=== PATIENT | male | born 1930 | race Caucasian/White ===

== ENCOUNTER 2017-09-01 17:35 | Inpatient (IN) | payer MEDICARE, OTHER ==
[~2017-09-01] VITALS: Ht 188 cm; Wt 83.1 kg
[~2017-09-01 17:35] MED LIST: CARB15DR2 EACHEYE; CHOL10002 PO; DOXE75CA3 PO; LEVO75TA PO; SIMV20TA5 PO
[2017-09-01] MEDS ORDERED: LIDOcaine 2% 10ml TOPICAL JELLY (Urojet) MM ONE (18:05)
[2017-09-01 18:16] LABS: CLARITY,URINE Clear (Clear); COLOR,URINE Yellow (Yellow); GLUCOSE, URINE Negative (Neg); KETONES,URINE Negative (Neg); LEUKOCYTE ESTERASE ,URINE Negative (Neg); NITRITES, URINE Negative (Neg); OCCULT BLOOD,URINE Small (Neg); PROTEIN,URINE Trace mg/dl (Neg)
[2017-09-01 18:20] LABS: UA COLLECTION TYPE STRAIGHT CATH
[2017-09-01 18:22] LABS: WBC,URINE 0-4 /HPF (0-4)
[2017-09-01 18:23] LABS: BACTERIA,URINE FEW /HPF (Neg); SQUAMOUS EPITHELIAL CELL,UR FEW /LPF (FEW)
[2017-09-01 19:18] LABS: BASOPHILS % (AUTO) 0.2 % (0-1); EOSINOPHILS # (AUTO) 0.1 X10'3 (0-0.9); EOSINOPHILS % (AUTO) 0.5 % (0-6); HEMATOCRIT 41.1 % (42.0-52.0); HEMOGLOBIN 13.9 g/dl (14.0-17.9); LYMPHOCYTES # (AUTO) 0.7 X10'3 (1.1-4.8); LYMPHOCYTES % (AUTO) 6.1 % (21-51); MEAN CORPUSCULAR HEMOGLOBIN 31.4 PG (27.0-31.0); MEAN CORPUSCULAR HGB CONC 33.9 % (33.0-36.5); MEAN CORPUSCULAR VOLUME 92.7 FL (78-98); MONOCYTES # (AUTO) 1.3 X10'3 (0-0.9); MONOCYTES % (AUTO) 11.5 % (2-12); NEUTROPHILS % (AUTO) 81.7 % (42-75); PLATELET COUNT 220 X10'3 (140-440); RED BLOOD COUNT 4.44 X10'6 (4.70-6.10); RED CELL DISTRIBUTION WIDTH 13.8 % (11.5-14.5)
[2017-09-01] MEDS ORDERED: TAMS0.4C32 PO (19:29)
[2017-09-01 19:36] LABS: ALANINE AMINOTRANSFERASE 19 U/L (12-78); ALBUMIN/GLOBULIN RATIO 0.7 (1.1-1.5); ALKALINE PHOSPHATASE 70 IU/L (46-116); ANION GAP 10 (8-16); ASPARTATE AMINO TRANSFERASE 18 U/L (10-37); BILIRUBIN,TOTAL 0.6 MG/DL (0.1-1.0); BLOOD UREA NITROGEN 43 MG/DL (7-18); BUN/CREATININE RATIO 9.5 (5.4-32.0); CALCIUM 8.7 MG/DL (8.5-10.1); CHLORIDE 103 MMOL/L (99-107); CREATININE 4.54 MG/DL (0.60-1.10); GLUCOSE 142 MG/DL (70-104); POTASSIUM 3.8 MMOL/L (3.5-5.1); SODIUM 138 MMOL/L (135-145); TOTAL PROTEIN 7.3 G/DL (6.4-8.2); eGFR 12 ML/MIN
[2017-09-01] MEDS ORDERED: tamsulosin 0.4mg capsule PO ONE (19:45)
[2017-09-01] MEDS ORDERED: FINA5TAB11 PO (19:53)
[2017-09-01] MEDS ORDERED: CIPR250S3 (19:53)
[2017-09-01] MEDS ORDERED: SAW/1TAB2 (19:53)
[2017-09-01] MEDS ORDERED: PRAS25CA (19:53)
[2017-09-01] MEDS ORDERED: ALB0.5UD IH (19:53)
[2017-09-01] MEDS ORDERED: DOXE50CA4 PO (19:53)
[2017-09-01] MEDS ORDERED: CHOL400T57 CORPAK (19:53)
[2017-09-01] MEDS ORDERED: BUDE10.2 INH (19:53)
[2017-09-01] MEDS ORDERED: NYST1POW5 (19:53)
[2017-09-01] MEDS ORDERED: NAS0.025NS BOTHNARES (19:53)
[2017-09-01] MEDS ORDERED: normal saline 1000ML IV soln IVB ONE (20:10)
[2017-09-01] MEDS ORDERED: mag hydrox/Alum hydrox/simeth 30ml oral suspension PO PRN (20:55)
[2017-09-01] MEDS ORDERED: magnesium hydroxide 30ml (MOM) UD suspension PO PRN (20:55)
[2017-09-01] MEDS ORDERED: ondansetron/PF 4mg/2ml inj IV PRN (20:55)
[2017-09-01] MEDS ORDERED: acetaminophen 325mg tablet PO PRN (20:55)
[2017-09-01] MEDS ORDERED: albuterol 2.5 MG/3 ML nebule NEB PRN (21:10)
[2017-09-01 22:00] VITALS: BP 153/69
[2017-09-01] MEDS: normal saline 1000ml 1,000 ML IV SCH (22:55)
[2017-09-02] VITALS: BP 138/60
[2017-09-02 03:39] LABS: BASOPHILS % (AUTO) 0.5 % (0-1); EOSINOPHILS # (AUTO) 0.2 X10'3 (0-0.9); EOSINOPHILS % (AUTO) 2.1 % (0-6); HEMATOCRIT 36.9 % (42.0-52.0); HEMOGLOBIN 12.5 g/dl (14.0-17.9); LYMPHOCYTES # (AUTO) 1.4 X10'3 (1.1-4.8); LYMPHOCYTES % (AUTO) 19.4 % (21-51); MEAN CORPUSCULAR HEMOGLOBIN 31.3 PG (27.0-31.0); MEAN CORPUSCULAR HGB CONC 33.8 % (33.0-36.5); MEAN CORPUSCULAR VOLUME 92.7 FL (78-98); MEAN PLATELET VOLUME 7.8 FL (7.4-10.4); MONOCYTES % (AUTO) 13.1 % (2-12); NEUTROPHILS # (AUTO) 4.8 X10'3 (1.8-7.7); NEUTROPHILS % (AUTO) 64.9 % (42-75); PLATELET COUNT 211 X10'3 (140-440); RED BLOOD COUNT 3.99 X10'6 (4.70-6.10); RED CELL DISTRIBUTION WIDTH 13.9 % (11.5-14.5); WHITE BLOOD COUNT 7.4 X10'3 (4.5-11.0)
[2017-09-02 04:01] LABS: ALANINE AMINOTRANSFERASE 13 U/L (12-78); ALBUMIN 2.4 G/DL (3.4-5.0); ALBUMIN/GLOBULIN RATIO 0.6 (1.1-1.5); ALKALINE PHOSPHATASE 58 IU/L (46-116); ANION GAP 10 (8-16); ASPARTATE AMINO TRANSFERASE 14 U/L (10-37); BILIRUBIN,TOTAL 0.7 MG/DL (0.1-1.0); BLOOD UREA NITROGEN 31 MG/DL (7-18); BUN/CREATININE RATIO 12.9 (5.4-32.0); CALCIUM 8.3 MG/DL (8.5-10.1); CHLORIDE 108 MMOL/L (99-107); GLUCOSE 108 MG/DL (70-104); POTASSIUM 3.3 MMOL/L (3.5-5.1); SODIUM 142 MMOL/L (135-145); TOTAL CARBON DIOXIDE 24.2 MMOL/L (24-32); TOTAL PROTEIN 6.1 G/DL (6.4-8.2); eGFR 26 ML/MIN
[2017-09-02] MEDS ORDERED: potassium Cl 20 mEq SR tablet PO STA (04:16)
[2017-09-02 08:00] VITALS: BP 130/53
[2017-09-02] MEDS: polyvinyl alcohol ophthalmic drops 15ml bottle EACHEYE SCH ×2 (09:27→21:31)
[2017-09-02] MEDS: levoTHYROXINE 75mcg tablet PO SCH (09:27)
[2017-09-02] MEDS: heparin, porcine 5000 units/ml vial SQ SCH ×2 (09:31→21:32)
[2017-09-02 11:00] VITALS: BP 127/61
[2017-09-02] MEDS ORDERED: magnesium 4gm in 100ml NS 100 ML IV PRN (13:00)
[2017-09-02] MEDS ORDERED: potassium Cl 40MEQ/NS 500ml 500 ML IV PRN ×2 (13:00)
[2017-09-02] MEDS ORDERED: magnesium/D5W IVPB 100 ML IV PRN (13:00)
[2017-09-02] MEDS ORDERED: potassium Cl 20 mEq SR tablet PO PRN (13:00)
[2017-09-02] MEDS: normal saline 1000ml 1,000 ML IV SCH ×2 (13:00→23:00)
[2017-09-02] MEDS ORDERED: magnesium Cl slow-release 64mg tablet PO PRN (13:00)
[2017-09-02] MEDS: potassium Cl 20 mEq SR tablet PO PRN ×3 (14:36→21:31)
[2017-09-02 19:00] VITALS: BP 137/60
[2017-09-02] MEDS: atorvastatin 10mg tablet PO SCH (21:30)
[2017-09-02] MEDS: tamsulosin 0.4mg capsule PO SCH (21:31)
[2017-09-02 23:30] VITALS: BP_SYST 125; BP_SYST 136; BP_DIAS 54; BP_DIAS 62
[2017-09-03 05:01] LABS: BASOPHILS % (AUTO) 0.6 % (0-1); EOSINOPHILS # (AUTO) 0.2 X10'3 (0-0.9); EOSINOPHILS % (AUTO) 3.1 % (0-6); HEMATOCRIT 35.2 % (42.0-52.0); HEMOGLOBIN 11.9 g/dl (14.0-17.9); LYMPHOCYTES # (AUTO) 1.6 X10'3 (1.1-4.8); LYMPHOCYTES % (AUTO) 24.9 % (21-51); MEAN CORPUSCULAR HEMOGLOBIN 31.1 PG (27.0-31.0); MEAN CORPUSCULAR HGB CONC 33.7 % (33.0-36.5); MEAN CORPUSCULAR VOLUME 92.3 FL (78-98); MEAN PLATELET VOLUME 7.9 FL (7.4-10.4); MONOCYTES # (AUTO) 0.8 X10'3 (0-0.9); MONOCYTES % (AUTO) 12.5 % (2-12); NEUTROPHILS # (AUTO) 3.7 X10'3 (1.8-7.7); NEUTROPHILS % (AUTO) 58.9 % (42-75); PLATELET COUNT 221 X10'3 (140-440); RED BLOOD COUNT 3.82 X10'6 (4.70-6.10); RED CELL DISTRIBUTION WIDTH 14.3 % (11.5-14.5); WHITE BLOOD COUNT 6.3 X10'3 (4.5-11.0)
[2017-09-03 05:20] LABS: ALANINE AMINOTRANSFERASE 14 U/L (12-78); ALBUMIN 2.2 G/DL (3.4-5.0); ALBUMIN/GLOBULIN RATIO 0.6 (1.1-1.5); ALKALINE PHOSPHATASE 52 IU/L (46-116); ANION GAP 8 (8-16); ASPARTATE AMINO TRANSFERASE 11 U/L (10-37); BILIRUBIN,TOTAL 0.4 MG/DL (0.1-1.0); BLOOD UREA NITROGEN 20 MG/DL (7-18); BUN/CREATININE RATIO 19.8 (5.4-32.0); CALCIUM 8.3 MG/DL (8.5-10.1); CHLORIDE 111 MMOL/L (99-107); CREATININE 1.01 MG/DL (0.60-1.10); GLUCOSE 95 MG/DL (70-104); MAGNESIUM 1.7 MG/DL (1.5-2.4); POTASSIUM 3.8 MMOL/L (3.5-5.1); SODIUM 144 MMOL/L (135-145); TOTAL CARBON DIOXIDE 25.3 MMOL/L (24-32); TOTAL PROTEIN 5.8 G/DL (6.4-8.2); eGFR 70 ML/MIN
[2017-09-03 07:00] VITALS: BP 119/54
[2017-09-03] MEDS: polyvinyl alcohol ophthalmic drops 15ml bottle EACHEYE SCH ×2 (08:00→20:55)
[2017-09-03] MEDS ORDERED: pneumococcal 23-VAL P-sac vacc 25 mcg/0.5ml vial IMVAC ONE (10:00)
[2017-09-03] MEDS: heparin, porcine 5000 units/ml vial SQ SCH (10:18)
[2017-09-03] MEDS: tamsulosin 0.4mg capsule PO SCH ×2 (10:18→20:55)
[2017-09-03] MEDS: levoTHYROXINE 75mcg tablet PO SCH (10:19)
[2017-09-03] MEDS: normal saline 1000ml 1,000 ML IV SCH ×2 (10:23→20:56)
[2017-09-03 11:00] VITALS: BP 134/48
[2017-09-03 16:32] LABS: PARTIAL THROMBOPLASTIN TIME 29 SECONDS (22-32)
[2017-09-03 20:00] VITALS: BP 112/55
[2017-09-03] MEDS: atorvastatin 10mg tablet PO SCH (20:55)
[2017-09-03 23:30] VITALS: BP 129/52
[2017-09-04] MEDS: normal saline 1000ml 1,000 ML IV SCH ×2 (05:00→15:00)
[2017-09-04 05:24] LABS: % FREE PSA 6.6 % (.); PSA, FREE 3.33 ng/mL
[2017-09-04 05:40] LABS: BASOPHILS % (AUTO) 0.5 % (0-1); EOSINOPHILS # (AUTO) 0.2 X10'3 (0-0.9); EOSINOPHILS % (AUTO) 3.9 % (0-6); HEMATOCRIT 35.5 % (42.0-52.0); HEMOGLOBIN 11.8 g/dl (14.0-17.9); LYMPHOCYTES # (AUTO) 1.6 X10'3 (1.1-4.8); LYMPHOCYTES % (AUTO) 28.5 % (21-51); MEAN CORPUSCULAR HEMOGLOBIN 30.8 PG (27.0-31.0); MEAN CORPUSCULAR HGB CONC 33.1 % (33.0-36.5); MEAN CORPUSCULAR VOLUME 93.2 FL (78-98); MEAN PLATELET VOLUME 8.2 FL (7.4-10.4); MONOCYTES # (AUTO) 0.7 X10'3 (0-0.9); MONOCYTES % (AUTO) 11.5 % (2-12); NEUTROPHILS # (AUTO) 3.2 X10'3 (1.8-7.7); NEUTROPHILS % (AUTO) 55.6 % (42-75); PLATELET COUNT 225 X10'3 (140-440); RED BLOOD COUNT 3.81 X10'6 (4.70-6.10); RED CELL DISTRIBUTION WIDTH 14.1 % (11.5-14.5); WHITE BLOOD COUNT 5.7 X10'3 (4.5-11.0)
[2017-09-04 06:02] LABS: ALANINE AMINOTRANSFERASE 18 U/L (12-78); ALBUMIN 2.3 G/DL (3.4-5.0); ALBUMIN/GLOBULIN RATIO 0.7 (1.1-1.5); ALKALINE PHOSPHATASE 51 IU/L (46-116); ANION GAP 5 (8-16); ASPARTATE AMINO TRANSFERASE 18 U/L (10-37); BILIRUBIN,TOTAL 0.4 MG/DL (0.1-1.0); BLOOD UREA NITROGEN 15 MG/DL (7-18); BUN/CREATININE RATIO 17.6 (5.4-32.0); CALCIUM 8.7 MG/DL (8.5-10.1); CHLORIDE 110 MMOL/L (99-107); CREATININE 0.85 MG/DL (0.60-1.10); GLUCOSE 98 MG/DL (70-104); MAGNESIUM 1.4 MG/DL (1.5-2.4); POTASSIUM 3.9 MMOL/L (3.5-5.1); SODIUM 142 MMOL/L (135-145); TOTAL CARBON DIOXIDE 27.3 MMOL/L (24-32); TOTAL PROTEIN 5.7 G/DL (6.4-8.2); eGFR 85 ML/MIN
[2017-09-04 07:32] VITALS: BP 139/59
[2017-09-04] MEDS: polyvinyl alcohol ophthalmic drops 15ml bottle EACHEYE SCH (08:59)
[2017-09-04] MEDS: tamsulosin 0.4mg capsule PO SCH (08:59)
[2017-09-04] MEDS: levoTHYROXINE 75mcg tablet PO SCH (08:59)
[2017-09-04] MEDS ORDERED: TAMS0.4C32 PO (10:18)
[2017-09-04] MEDS ORDERED: CIPR-259 PO (10:19)
[2017-09-04 11:00] VITALS: BP 128/69
== END 2017-09-04 16:17 | disposition home health service (06) | DRG 683 ==
LOC: ER 17:35 → ED HOLD 20:53 → SUR 3N 22:03
PROVIDERS: ADMIT Internal Medicine; ATTEND Internal Medicine
DX: N17.9 Acute kidney failure, unspecified (principal); E44.0 Moderate protein-calorie malnutrition; G61.0 Guillain-Barre syndrome; N13.8 Other obstructive and reflux uropathy; N13.2 Hydronephrosis with renal and ureteral calculous obstruction; R31.0 Gross hematuria; N40.1 Benign prostatic hyperplasia with lower urinary tract symptoms; E87.6 Hypokalemia; J45.909 Unspecified asthma, uncomplicated; G89.29 Other chronic pain; N28.1 Cyst of kidney, acquired; Z88.2 Allergy status to sulfonamides; Z88.0 Allergy status to penicillin; Z79.899 Other long term (current) drug therapy; Z85.89 Personal history of malignant neoplasm of other organs and systems; Z87.891 Personal history of nicotine dependence; Z68.23 Body mass index [BMI] 23.0-23.9, adult
CPT/HCPCS: 36415; 74176; 80053; 81001; 83735; 84153; 84154; 85025; 85610; 85730; 87070; 99285; A4315; A4353; A6213; J1644; J7030

== ENCOUNTER 2018-06-08 13:54 | Emergency (ER) | payer MEDICARE, OTHER ==
[~2018-06-08] VITALS: Ht 188 cm; Wt 86.4 kg
[~2018-06-08 13:54] MED LIST changes: +ALB0.5UD IH; +BUDE10.2 INH; +FINA5TAB11 PO; +NAS0.025NS BOTHNARES; +TAMS0.4C32 PO
[2018-06-08 14:24] VITALS: BP 144/62
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
== END 2018-06-08 15:01 | disposition home or self-care (01) ==
LOC: ER 13:54
DX: T83.018A Breakdown (mechanical) of other urinary catheter, initial encounter (principal); J45.909 Unspecified asthma, uncomplicated; G89.29 Other chronic pain; Z90.49 Acquired absence of other specified parts of digestive tract; Z88.0 Allergy status to penicillin; Z88.2 Allergy status to sulfonamides; Z79.899 Other long term (current) drug therapy; Y92.89 Other specified places as the place of occurrence of the external cause
CPT/HCPCS: 99284

== ENCOUNTER 2018-06-15 04:12 | Emergency (ER) | payer MEDICARE, OTHER ==
[~2018-06-15] VITALS: Ht 182.9 cm; Wt 81.8 kg
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
[2018-06-15 06:44] VITALS: BP 159/86
== END 2018-06-15 07:28 | disposition home or self-care (01) ==
LOC: ER 04:13
DX: T83.011A Breakdown (mechanical) of indwelling urethral catheter, initial encounter (principal); J45.909 Unspecified asthma, uncomplicated; G89.29 Other chronic pain; Z90.49 Acquired absence of other specified parts of digestive tract; Z88.0 Allergy status to penicillin; Z88.2 Allergy status to sulfonamides; Z79.899 Other long term (current) drug therapy; Y83.8 Other surgical procedures as the cause of abnormal reaction of the patient, or of later complication, without mention of misadventure at the time of the procedure; Y92.89 Other specified places as the place of occurrence of the external cause
CPT/HCPCS: 99283

== ENCOUNTER 2018-07-18 19:55 | Emergency (ER) | payer MEDICARE, OTHER ==
[~2018-07-18] VITALS: Ht 190.5 cm; Wt 85.0 kg
[2018-07-18] MEDS ORDERED: LIDOcaine 2% 10ml TOPICAL JELLY (Urojet) MM ONE (20:25)
[2018-07-18 21:48] VITALS: BP 179/82
[2018-07-18 22:13] LABS: CLARITY,URINE SLIGHTLY CLOUDY (Clear); COLOR,URINE YELLOW (Yellow); GLUCOSE, URINE NEGATIVE (Neg); KETONES,URINE NEGATIVE (Neg); LEUKOCYTE ESTERASE ,URINE LARGE (Neg); OCCULT BLOOD,URINE LARGE (Neg); PH,URINE 5.5 (4.8-8.0); PROTEIN,URINE 30 mg/dl (Neg); UROBILINOGEN,URINE 0.2 E.U/dL (0.2-1.0)
[2018-07-18 22:17] LABS: UA COLLECTION TYPE FOLEY CATH
[2018-07-18 22:18] LABS: NITRITES, URINE NEGATIVE (Neg)
[2018-07-18 22:19] LABS: BACTERIA,URINE FEW /HPF (Neg); SQUAMOUS EPITHELIAL CELL,UR FEW /LPF (FEW); WBC CLUMPS,URINE MODERATE /HPF (NEGATIVE); WBC,URINE 20-30 /HPF (0-4)
== END 2018-07-18 21:52 | disposition home or self-care (01) ==
LOC: ER 19:55
DX: T83.098A Other mechanical complication of other urinary catheter, initial encounter (principal); J45.909 Unspecified asthma, uncomplicated; Z90.49 Acquired absence of other specified parts of digestive tract; Z88.0 Allergy status to penicillin; Z88.2 Allergy status to sulfonamides
CPT/HCPCS: 51702; 81001; 87077; 87088; 87186; 99284